=== PATIENT | female | born 1960 | race Caucasian/White ===

== ENCOUNTER → 2022-12-07 11:21 | Outpatient (CLI) | payer OTHER, SELFPAY ==
[2022-12-07 12:00] LABS: Add Manual Diff / Slide Review NO; Basophils Absolute Auto 0 /uL (0-100); Basophils Percent Auto 0.5 % (0-2); Eosinophils Absolute Auto 100 /uL (0-450); Eosinophils Percent Auto 2.3 % (2-4); Hematocrit 41.6 % (36-46); Lymphocytes Absolute Auto 2800 /uL (1100-4500); Lymphocytes Percent Auto 48.2 % (25-40); Mean Corpuscular HGB Conc 33.7 % (30-36); Mean Corpuscular Hemoglobin 28.1 PG (26-34); Mean Corpuscular Volume 83.5 fL (80-100); Monocytes Absolute Auto 400 /uL (0-900); Monocytes Percent Auto 6.6 % (3-14); Neutrophils Absolute Auto 2500 /uL (1500-7000); Neutrophils Percent Auto 42.4 % (50-75); Platelet Count 296 X10^3/uL (150-400); Red Blood Cell Count 4.98 X10^6/uL (4.0-5.2); Red Cell Distribution Width 13.3 % (11.6-14.8); White Blood Cell Count 5.9 X10^3/uL (4.5-11.0)
[2022-12-07 12:30] LABS: Alanine Aminotransferase 28 IU/L (<35); Albumin 4.5 g/dL (3.5-5.0); Albumin Globulin Ratio 1.7 (1.0-2.8); Alkaline Phosphatase 107 U/L (38-126); Aspartate Aminotransferase 24 IU/L (14-36); BUN Creatinine Ratio 18.1 (6-22); Bilirubin Total 0.8 mg/dL (0.2-1.3); Blood Urea Nitrogen 13 mg/dL (7-17); Calcium 9.2 mg/dL (8.4-10.2); Carbon Dioxide 25 mmol/L (22-32); Chloride 105 mmol/L (98-107); Cholesterol 225 mg/dL (140-199); Estimated Glomerular Filt Rate > 60 mL/min (>60); Globulin 2.7 g/dL (1.7-4.1); Glucose 93 mg/dL (80-110); HDL Cholesterol 54 mg/dL (40-60); HEMOLYSIS < 15 (0-50); LDL Cholesterol Calculated 131 mg/dL (<100); Potassium 4.3 mmol/L (3.4-5.1); Sodium 138 mmol/L (137-145); Total Protein 7.2 g/dL (6.3-8.2); Triglycerides 198 mg/dL (35-150)
[2022-12-07 13:01] LABS: Free T3, Triiodothyronine Free 3.87 pg/mL (2.77-5.27); Free T4, Direct Thyroxine 1.05 ng/dL (0.78-2.19)
[2022-12-07 13:19] LABS: Hep C Virus Ab w/Reflex Quant NEGATIVE s/c (NEGATIVE)
[2022-12-07 13:54] LABS: Thyroid Stimulating Hormone 1.55 uIU/mL (0.47-4.68)
[2022-12-10 10:17] LABS: Fecal Immunochemical Test Negative (Negative)
== END ==
PROVIDERS: PCP Nurse Practitioner; Referring Provider Nurse Practitioner; Visit Provider Nurse Practitioner
DX: Z00.00 Encounter for general adult medical examination without abnormal findings (principal); Z11.59 Encounter for screening for other viral diseases; Z12.11 Encounter for screening for malignant neoplasm of colon
CPT/HCPCS: 36415; 80053; 80061; 82274; 84439; 84443; 84481; 85025; 86803

== ENCOUNTER → 2023-02-01 08:48 | Outpatient (CLI) | payer OTHER, SELFPAY ==
--- NOTE | 2023-02-01 08:49 | DI.MG.S_ITS ---
BILATERAL DIGITAL DIAGNOSTIC MAMMOGRAM 3D/2D: 02/01/2023 CLINICAL: Palpable right breast lump/indention. Comparison is made to exams dated: 12/02/2019 mammogram, 10/09/2017 mammogram, and 05/10/2015 mammogram - Outside facility. Both breasts are heterogeneously dense, which may obscure small masses (category c / 51-75% glandular tissue). There is a 1.5 cm mass with a spiculated margin in the right breast at 6 o'clock posterior depth. This correlates as palpated. No other significant masses, calcifications, or other findings are seen in either breast. IMPRESSION: INCOMPLETE: NEEDS ADDITIONAL IMAGING EVALUATION The 1.5 cm mass in the right breast is indeterminate. An ultrasound is recommended. Based on the Tyrer Cuzick model (a risk assessment model) the patient's lifetime risk is 11.5% and her 10 year risk is 5.0%. According to the ACR, ACS, and NCCN guidelines, an annual breast MRI exam along with mammogram is recommended if the patient's lifetime risk is 20% or greater. This exam was interpreted at Station ID: [id number]. NOTE: For mammograms, a report in lay terms will be sent to the patient. Approximately 15% of breast malignancies will not be visualized mammographically. In the management of a palpable breast mass, a negative mammogram must not discourage biopsy of a clinically suspicious lesion. Electronically Signed By: Ander Dasilva M.D. lc/:02/01/2023 11:57:02 ACR BI-RADS Category 0: Incomplete 3340F
--- NOTE | 2023-02-01 08:49 | DI.US.S_ITS ---
LIMITED ULTRASOUND OF RIGHT BREAST AND AXILLA: 02/01/2023 CLINICAL: Palpable right breast lump/indention. Comparison is made to exams dated: 02/01/2023 mammogram - [facility], 12/02/2019 mammogram, 10/09/2017 mammogram, and 05/10/2015 mammogram - Outside facility. Color flow and real-time ultrasound of the right breast axilla were performed. Li scale images of the real-time examination were reviewed. There is a 1.5 cm x 1.3 cm x 1.1 cm mass with a spiculated margin in the right breast at 6 o'clock posterior depth 6 cm from the nipple. This correlates as palpated and with mammography findings. No significant abnormalities were seen sonographically in the right axilla. IMPRESSION: HIGHLY SUGGESTIVE OF MALIGNANCY The 1.5 cm x 1.3 cm x 1.1 cm mass in the right breast is highly suggestive of malignancy. US biopsy recommended. No significant abnormalities were seen sonographically in the right axilla. This exam was interpreted at Station ID: [id number]. Electronically Signed By: Ander Dasilva M.D. /:02/01/2023 11:58:37 letter sent: Biopsy Required Ultrasound BI-RADS: 5 Highly suggestive of malignancy
== END ==
PROVIDERS: PCP Nurse Practitioner; Referring Provider Nurse Practitioner Family; Visit Provider Nurse Practitioner Family
DX: N63.15 Unspecified lump in the right breast, overlapping quadrants (principal); R92.8 Other abnormal and inconclusive findings on diagnostic imaging of breast
CPT/HCPCS: 76642; 77066; G0279

== ENCOUNTER 2023-03-11 12:43 | Day surgery (SDC) | payer OTHER, SELFPAY ==
[2023-03-06 08:16] VITALS: BMI 26.4
[2023-03-11] VITALS (7 sets, daily range): BP systolic 100–134; BP diastolic 62–80; PULSE 71–98; RESP 13–22; TEMP 36.4–36.5; O2SAT 95–97; BMI 26.4
[2023-03-11] MEDS: LACTATED RINGERS 1,000 ML 84 ML IV (13:31)
--- NOTE | 2023-03-11 14:09 | P.HP_ITS ---
History of Present Illness History of Present Illness Date Patient Seen: 03/11/23 Time Patient Seen: 14:09 Chief complaint: SDC Narrative: Moira is a 62-year-old woman with a recent diagnosis of right breast triple negative breast cancer. She will be seeing Dr. Pacheco of Oncology tomorrow. See prior office notes for more details. [facility] Medical History (Updated 03/07/23 @ 12:51 by Charmaine Dempsey, RN) Acne (~1972) Aseptic necrosis of bone Breast mass, right Elevated cholesterol Headache Heart murmur Restless leg syndrome (~1999) Skin cancer (~2015) Surgical History (Updated 03/07/23 @ 12:53 by Charmaine Dempsey RN) Anesthesia H/O right wrist surgery (~2010) History of hip surgery (~2003) History of knee surgery (~2008) Family History Father Cancer History of heart disease Hypertension Mother Fall Grandmother Diabetes mellitus Social History Smoking Status: Never smoker alcohol intake: current Meds Home Medications and Allergies Home Medications Medication Instructions Recorded Confirmed Type baclofen 5 mg tablet 5 mg PO BID PRN Muscle Spasm 10/02/22 03/11/23 History diazepam 5 mg tablet 10 mg PO BID-TID PRN RLS #60 tabs 02/05/23 03/11/23 Rx Allergies Allergy/AdvReac Type Severity Reaction Status Date / Time Sulfa (Sulfonamide Allergy Intermediate Verified 03/11/23 13:02 Antibiotics) citric acid AdvReac Severe rash and Verified 03/11/23 13:02 canker sores Exam Vital Signs (past 8 hours): - 03/11/23 13:05 Temperature 97.7 F Pulse Rate 84 Respiratory Rate 16 Blood Pressure 134/80 Pulse Oximetry 97 Oxygen Delivery Method Room Air Oxygen Delivery Method Room Air Const General: healthy appearing Assessment & Plan Assessment and plan (1) Breast cancer, right: Qualifiers: Breast location: lower inner quadrant of breast Estrogen receptor status: unspecified Patient sex: female Qualified Code(s): C50.311 - Malignant neoplasm of lower-inner quadrant of right female breast Status: Acute Plan We reviewed the risks and benefits of Port-A-Cath placement and she would like to proceed with surgery.
[2023-03-11] MEDS: CEFAZOLIN 2 GM/100 ML PREMIX 100 ML IV (14:42)
--- NOTE | 2023-03-11 15:01 | SUR.OPER ---
Supine on padded OR bed, head on pillow, arms padded and tucked at sides, legs uncrossed, safety belt at thigh, tape over blanket over lower legs .
[2023-03-11] MEDS: LIDOCAINE 1% 20 ML, EPINEPHrine 0.2 MG INJ (15:07)
--- NOTE | 2023-03-11 15:18 | DI.RAD.S_ITS ---
PROCEDURE: XR CHEST 1V INDICATIONS: INNER OP IMAGE TECHNIQUE: One view of the chest was acquired. COMPARISON: None. FINDINGS: Surgical changes and devices: A catheter projects over the right chest, tip of which projects over the mid SVC. Lungs and pleura: Lungs are clear. No pleural effusions or pneumothorax. Mediastinum: Mediastinal contours appear normal. Heart size is normal. Bones and chest wall: No suspicious bony lesions. Overlying soft tissues appear unremarkable. IMPRESSION: Tip of catheter projects over the mid SVC. Dictated by: Margarita Valero M.D. on 03/11/2023 at 16:20 Approved by: Margarita Valero M.D. on 03/11/2023 at 16:21
--- NOTE | 2023-03-11 15:24 | P.OP_ITS ---
Operative Date/Time/Diagnoses Date of procedure: 03/11/23 Time of procedure: 15:25 Pre-op diagnosis: Right breast cancer Post-op diagnosis: same Procedure & Clinicians Procedure: Port-A-Cath Same procedure as scheduled: Yes Surgeon: Jasvir Tang Anesthesia Type: General Operative Notes Procedure in detail: The patient was brought to the operating room, placed on the table in the supine position with the arms tucked. Ancef was administered. Anesthesia was induced via LMA. A time-out was performed. The right chest and neck were prepped and draped in the usual fashion. An ultrasound was used to identify the right internal jugular vein. The vein was noted to be patent. An image was saved and printed and placed in the chart. The right internal jugular vein was accessed via the Seldinger technique under ultrasound guidance. The guidewire was inserted into the superior vena cava. C-arm was used to confirm proper position of the guidewire in the superior vena cava and no ectopy was noted. The needle was removed and the wire was clamped to the drape. Next, a port pocket was created just inferior to the medial clavicle using a 15 blade scalpel. Dissection was carried down to the pectoral fascia. A subcutaneous pocket was created using a combination of cautery and blunt dissection. Next, the port which was primed with injectable saline, was secured to the fascia with 3-0 PDS sutures left untied and clamped. The neck incision was extended with an 11 blade scalpel to approximately 5 mm. The dilator and peel-away sheath were inserted over the wire without resistance. The catheter was passed from the neck incision to the chest incision in the subcutaneous tissue using the tunnelling device. The wire and dilator were then removed and the catheter inserted through the peel-away sheath to deliver it into the superior vena cava. The depth of the device was checked using the C-arm and the tip of the device was noted to be in the distal superior vena cava. The exterior portion of the catheter was then trimmed and attached to the port using the strain relief collar. A final image showed good position of the catheter with no kinks. The port was then tucked into the subcutaneous pocket and the sutures were tied to secure the device. The port was then accessed using the Valadez needle and it was noted that the device sharif and flushed easily without resistance. Approximately 4 mL of heparinized saline were injected into the dev ice. The skin incisions were closed with 3-0 Vicryl and 4-0 Monocryl. Steri- Strips were applied patient was awakened and brought to recovery room EBL: 5 mL Ultrasound: The right internal jugular vein was patent. The right carotid artery was visualized adjacent to the vein. Venipuncture was visualized in real-time using the ultrasound. Fluoroscopy: The device was positioned appropriately with the distal end of the catheter near the atriocaval junction. There were no kinks in the catheter. Post-operative Condition: stable Disposition: PACU
--- NOTE | 2023-03-11 15:35 | DI.RAD.S_ITS ---
PROCEDURE: XR CHEST 1V INDICATIONS: POST OP PORTACATH TECHNIQUE: One view of the chest was acquired. COMPARISON: [facility], CR, XR CHEST 1V, 03/11/2023, 15:01. FINDINGS: Surgical changes and devices: Right-sided port with the catheter tip at the cavoatrial junction. Lungs and pleura: Lungs are clear. No pleural effusions or pneumothorax. Mediastinum: Mediastinal contours appear normal. Heart size is normal. Bones and chest wall: No suspicious bony lesions. Overlying soft tissues appear unremarkable. IMPRESSION: Right-sided port with the tip at the cavoatrial junction. No pneumothorax. Dictated by: Justin Lees M.D. on 03/11/2023 at 16:45 Approved by: Justin Lees M.D. on 03/11/2023 at 16:46
[2023-03-11] MEDS: OXYCODONE/ACETAMINOPHEN 5/325 TABLET 1 TAB PO (16:27)
== END 2023-03-11 16:54 | disposition home or self-care (01) ==
PROVIDERS: PCP Nurse Practitioner; Referring Provider Surgery; Visit Provider Surgery
PROC: (CPT 36561; principal; 2023-03-11 14:30)
DX: C50.311 Malignant neoplasm of lower-inner quadrant of right female breast (principal)
CPT/HCPCS: 36561; 71045; 76000; C1788; J0171; J0690; J1100; J1644; J2250; J2405; J2704; J3010

== ENCOUNTER → 2023-03-14 09:42 | Outpatient (CLI) | payer OTHER, SELFPAY ==
--- NOTE | 2023-03-14 09:44 | DI.US.S_ITS ---
LIMITED ULTRASOUND OF LEFT BREAST AND AXILLA: 03/14/2023 CLINICAL: Palpable left breast lump. Comparison is made to exams dated: 03/14/2023 mammogram, 02/01/2023 mammogram - [facility], and 12/02/2019 mammogram - Outside facility. Color flow and real-time ultrasound of the left breast axilla were performed. Li scale images of the real-time examination were reviewed. There is a 0.5 cm x 0.4 cm x 0.4 cm oval cyst in the left breast at 7 o'clock anterior depth 4 cm from the nipple. This oval cyst is hypoechoic. This correlates with mammography findings. Color flow imaging demonstrates that there is no vascularity present. No mass is seen at the palpable sticker. No significant abnormalities were seen sonographically in the left axilla. IMPRESSION: PROBABLY BENIGN The 0.5 cm cyst in the left breast 7:00 is consistent with a complicated cyst and is probably benign. A follow-up mammogram and an ultrasound in 6 months is recommended to demonstrate stability. Patient has a pending breast MRI for known cancer in the contralateral right breast. Recommend attention on breast MRI. No mass is seen at the palpable sticker. No enlarged left axillary lymph nodes. Exam findings were discussed with the patient. Patient is advised to monitor for significant change. Clinical follow-up as needed. This exam was interpreted at Station ID: [id number]. Electronically Signed By: Justin Lees M.D. slc/:03/14/2023 11:23:14 letter sent: Followup Recommended Ultrasound BI-RADS: 3 Probably benign
--- NOTE | 2023-03-14 09:44 | DI.MG.S_ITS ---
UNILATERAL LEFT DIGITAL DIAGNOSTIC MAMMOGRAM 3D/2D: 03/14/2023 CLINICAL: Left breast mass. Comparison is made to exams dated: 02/01/2023 mammogram - [facility], 12/02/2019 mammogram, and 10/09/2017 mammogram - Outside facility. The left breast is heterogeneously dense, which may obscure small masses (category c / 51-75% glandular tissue). There is a 0.5 cm oval mass in the left breast at 7 o'clock anterior depth. This is more prominent and correlates as palpated. No other significant masses or calcifications are seen in the breast. IMPRESSION: INCOMPLETE: NEEDS ADDITIONAL IMAGING EVALUATION The 0.5 cm palpated mass in the left breast is indeterminate. A targeted ultrasound is recommended and will immediately follow. This exam was interpreted at Station ID: [id number]. NOTE: For mammograms, a report in lay terms will be sent to the patient. Approximately 15% of breast malignancies will not be visualized mammographically. In the management of a palpable breast mass, a negative mammogram must not discourage biopsy of a clinically suspicious lesion. Electronically Signed By: Justin Lees M.D. [facility] [place]:03/14/2023 10:13:19 ACR BI-RADS Category 0: Incomplete 3340F
== END ==
PROVIDERS: PCP Nurse Practitioner; Referring Provider Surgery; Visit Provider Surgery
DX: R92.8 Other abnormal and inconclusive findings on diagnostic imaging of breast (principal); N60.02 Solitary cyst of left breast; C50.911 Malignant neoplasm of unspecified site of right female breast
CPT/HCPCS: 76642; 77065; G0279

== ENCOUNTER → 2023-03-19 08:32 | Outpatient (CLI) | payer OTHER, SELFPAY ==
--- NOTE | 2023-03-19 08:34 | DI.MRI.S_ITS ---
BREAST MRI OF BOTH BREASTS: 03/19/2023 CLINICAL: Triple negative breast cancer; Dense breast. PROCEDURE: MR BREAST BI WO/W CON INDICATIONS: Triple negative breast cancer, dense breast TECHNIQUE: The patient was placed prone in a dedicated breast imaging coil. Precontrast axial STIR and 3D FLASH without fat saturation sequences were obtained. Both before and after bolus injection of contrast, sequential 1-minute axial 3D FLASH with fat saturation sequences for 3 time points, with subtraction images and maximum intensity projections (MIP's) generated. Delayed sagittal FLASH images with fat saturation were also obtained. CONTRAST: 20 cc ProHance IV contrast. Computer-aided detection, including computer algorithm analysis of MRI image data for lesion detection and characterization, pharmacokinetic analysis, with further physician review for interpretation, was performed. COMPARISON: [facility], , US BREAST LT LIMITED, 03/14/2023, 10:43. [facility], , MM DIAGNOSTIC MAMMO UNILAT LT, 03/14/2023, 9:58. [facility], , US BREAST RT LIMITED, 02/01/2023, 9:29. [facility], , MM DIAGNOSTIC MAMMO BI, 02/01/2023, 9:04. Outside Facility, [facility], MM SCREENING MAMMO BI, 12/02/2019, 14:56. Outside Facility, [facility], MM SCREENING MAMMO BI, 10/09/2017, 12:11. FINDINGS: Image quality: Excellent. There is mild background parenchymal enhancement. Right breast: 5:30 o'clock posterior depth irregular enhancing mass measuring 1.7 x 1.5 x 1.4 cm, (30 and ). Susceptibility artifact from biopsy clip centered in the lesion. Kinetic analysis demonstrates rapid initial phase and washout delayed phase. 3 o'clock middle depth enhancing irregular focus measuring 0.5 cm, (/ and 1460). Kinetic analysis demonstrates slow initial phase and persistent delayed phase. This focus is a more conspicuous compared to the other foci scattered throughout the breast. Left breast: 9 o'clock middle depth oval enhancing mass measuring 0.7 x 0.5 x 0.4 cm, (1353 and 15/). Kinetic analysis demonstrates slow initial phase and persistent delayed phase. This likely corresponds to the palpable abnormality and complicated cyst seen on ultrasound labeled at the 7 o'clock 4 cm from the nipple. A few additional scattered enhancing foci. Miscellaneous: No enlarged lymph nodes. IMPRESSION: INCOMPLETE: NEEDS ADDITIONAL IMAGING EVALUATION 1. Right breast: 5:30 o'clock posterior depth irregular enhancing mass measuring 1.7 cm. This corresponds to the biopsy-proven malignancy. 2. Right breast: 3 o'clock middle depth irregular enhancing focus measuring 0.5 cm. Indeterminate. This could represent multicentric disease. BR 4B -Recommend second-look right breast ultrasound. 3. Left breast: 9 o'clock middle depth oval enhancing mass measuring 0.7 cm. This may correspond to the ultrasound finding at 7 o'clock 4 cm in the nipple. Indeterminate. BR 4A. -Recommend second-look left breast ultrasound 9:00 region. -Assuming the MRI finding and US finding are concordant, recommend ultrasound guided biopsy of the previously seen ultrasound finding, left breast 7 o'clock 4 cm from nipple given that the finding was palpable and the MRI finding is mildly enhancing. 4. Lymph nodes: No enlarged lymph nodes. BIRADS 0. Recommend second-look ultrasounds and left breast ultrasound guided biopsy. COMMENT: The imaging literature indicates that a negative contrast breast MRI examination has a high sensitivity and a moderate specificity for detecting and excluding invasive carcinomas to a detection threshold of 3-5 mm; nonetheless, appropriate clinical and mammographic follow-up are recommended. MRI is not sensitive for detecting DCIS (ductal carcinoma in situ) and may not detect large invasive neoplasms that show only minimal enhancement such as mucinous carcinoma. If there are suspicious calcifications or clinically worrisome palpable masses, then biopsy should still be considered. Invasive neoplasms can be hidden by co-existent and benign enhancement caused by mastitis, hormone therapy effects, radiation therapy, , and recent biopsy or surgery. False positive examinations can occur in a number of circumstances, including breasts that have recently been subject to invasive procedures and those that contain atypical ductal hyperplasia, hormonally stimulated glandular tissue, fat necrosis, or radial scars. Dictated by: Justin Lees M.D. on 03/19/2023 at 15:59 This exam was interpreted at Station ID: [id number]. Electronically Signed By: Justin Lees M.D. slc/:03/20/2023 12:17:11 ACR BI-RADS Category 0: Incomplete 3340F
== END ==
PROVIDERS: PCP Nurse Practitioner; Referring Provider Internal Medicine Hematology & Oncology; Visit Provider Internal Medicine Hematology & Oncology
DX: C50.311 Malignant neoplasm of lower-inner quadrant of right female breast (principal); R92.2 Inconclusive mammogram; N63.15 Unspecified lump in the right breast, overlapping quadrants; N63.25 Unspecified lump in the left breast, overlapping quadrants
CPT/HCPCS: 77049; A9579

== ENCOUNTER → 2023-03-29 09:25 | Outpatient (CLI) | payer OTHER, SELFPAY ==
--- NOTE | 2023-03-29 09:26 | DI.US.S_ITS ---
ULTRASOUND OF LEFT BREAST AND AXILLA: 03/29/2023 CLINICAL: Recommended 2nd breast ultrasound after MRI. Comparison is made to exams dated: 03/19/2023 breast MRI, 03/14/2023 ultrasound, 03/14/2023 mammogram, 02/01/2023 ultrasound, 02/01/2023 mammogram - [facility], and 12/02/2019 mammogram - Outside facility. Color flow and real-time ultrasound of the left breast axilla were performed. Li scale images of the real-time examination were reviewed. There is a 0.4 cm x 0.3 cm x 0.4 cm oval mass with an indistinct margins in the left breast at 9 o'clock middle depth 3 cm from the nipple. This oval mass is hypoechoic with no posterior acoustic shadowing or enhancement. This might correlate with breast MRI findings. Color flow imaging demonstrates that there is no vascularity present. There also is a 0.6 cm x 0.5 cm x 0.5 cm oval mass in the left breast at 7 o'clock middle depth 4 cm from the nipple. This oval mass is hypoechoic. This likely correlates as palpated area of concern on previous imaging and asymmetry seen on mammography. Given it's proximity to the 9 o'clock mass, this might correlate breast MRI finding described since there was only one suspicious finding seen on MRI. Color flow imaging demonstrates that there is no vascularity present. No significant abnormalities were seen sonographically in the left axilla. IMPRESSION: SUSPICIOUS OF MALIGNANCY The 0.4 cm x 0.3 cm x 0.4 cm oval mass in the left breast at 9 o'clock middle depth is suspicious of malignancy. The 0.6 cm x 0.5 cm x 0.5 cm oval mass in the left breast at 7 o'clock middle depth is suspicious of malignancy. No sonographic abnormalities identified in the axilla. No axillary adenopathy. An ultrasound guided biopsy is recommended for both of these masses in this patient with biopsy proven contralateral malignancy. Findings and recommendations were discussed with the patient by Dr. Harden during today's examination. This exam was interpreted at Station ID: [id number]. Electronically Signed By: Esau Lopez M.D. aty/:04/01/2023 14:37:05 letter sent: Biopsy Required Ultrasound BI-RADS: 4 Suspicious for malignancy
--- NOTE | 2023-03-29 09:26 | DI.US.S_ITS ---
ULTRASOUND OF RIGHT BREAST AND AXILLA: 03/29/2023 CLINICAL: Recommended 2nd breast ultrasound after mri. Comparison is made to exams dated: 03/29/2023 ultrasound, 03/19/2023 breast MRI, 03/14/2023 ultrasound, 03/14/2023 mammogram, 02/01/2023 ultrasound, and 02/01/2023 mammogram - [facility]. Color flow and real-time ultrasound of the right breast axilla were performed. Li scale images of the real-time examination were reviewed. There is a 0.4 cm x 0.2 cm x 0.3 cm oval mass in the right breast at 3 o'clock anterior depth 1 cm from the nipple. This oval mass is hypoechoic with no posterior acoustic shadowing or enhancement. This abnormality is not significantly changed and correlates with breast MRI findings. Color flow imaging demonstrates that there is no vascularity present. There also is a stable irregular mass in the right breast at 5 o'clock middle depth. There is an associated biopsy clip. This is consistent with biopsy proven malignancy. No sonographic abnormalities seen in the right breast at the 9 o'clock axis to correlate with suspicious MRI findings described in separate report. No significant abnormalities were seen sonographically in the right axilla. IMPRESSION: SUSPICIOUS OF MALIGNANCY The 0.4 cm x 0.2 cm x 0.3 cm oval mass in the right breast at 3 o'clock anterior depth resembles a lymph node or a fibroadenoma and is probably benign. This correlates with MRI finding in the medial anterior right breast. A follow up mammogram and ultrasound is recommended in 6 months to document stability. The irregular mass in the right breast at 5 o'clock middle depth is a known biopsy positive for malignancy. Continue with surgical/oncologic consultation and evaluation. There is no abnormality seen in the right breast to correspond with the area of suspicious breast MRI finding at 9 o'clock in the anterior depth, however, MRI guided biopsy is recommended. No sonographic abnormalities identified in the axilla. No axillary adenopathy. Findings and recommendations were discussed by Dr. Harden with the patient during today's examination. This exam was interpreted at Station ID: [id number]. Electronically Signed By: Esau Lopez M.D. aty/:04/01/2023 14:32:35 letter sent: Biopsy Required Ultrasound BI-RADS: 4 Suspicious for malignancy
== END ==
PROVIDERS: PCP Nurse Practitioner; Referring Provider Internal Medicine Hematology & Oncology; Visit Provider Internal Medicine Hematology & Oncology
DX: C50.311 Malignant neoplasm of lower-inner quadrant of right female breast; N63.25 Unspecified lump in the left breast, overlapping quadrants; N63.24 Unspecified lump in the left breast, lower inner quadrant; Z17.0 Estrogen receptor positive status [ER+]
CPT/HCPCS: 76642

== ENCOUNTER → 2023-10-15 12:37 | Outpatient (CLI) | payer OTHER, SELFPAY ==
--- NOTE | 2023-10-15 | DI.MRI.S_ITS ---
BREAST MRI OF BOTH BREASTS: 10/15/2023 CLINICAL: Breast Cancer. TECHNIQUE: The patient was placed prone in a dedicated breast imaging coil. Precontrast axial STIR and 3D FLASH without fat saturation sequences were obtained. Both before and after bolus injection of contrast, sequential 1-minute axial 3D FLASH with fat saturation sequences for 3 time points, with subtraction images and maximum intensity projections (MIP's) generated. Delayed sagittal FLASH images with fat saturation were also obtained. Computer-aided detection, including computer algorithm analysis of MRI image data for lesion detection and characterization, pharmacokinetic analysis, with further physician review for interpretation, was performed. COMPARISON: [facility], MG, MM DIAGNOSTIC MAMMO BI, 02/01/2023, 9:04. [facility], MG, MM DIAGNOSTIC MAMMO UNILAT LT, 03/14/2023, 9:58. [facility], US, US BREAST RT LIMITED, 02/01/2023, 9:29. [facility], US, US BREAST LT LIMITED, 03/14/2023, 10:43. [facility], US, US BREAST LT LIMITED, 03/29/2023, 9:50. [facility], MR, MR BREAST BI WO/W CON, 03/19/2023, 9:35. Image quality: Diagnostic. There is mild background parenchymal enhancement. There is heterogeneously dense fibroglandular tissue in the bilateral breast. Right breast: There is a biopsy marker noted in the posterior depth of the inferior right breast at approximately the 5:30 -6 o'clock position correlating with previously biopsy proven malignancy. There is minimal surrounding enhancement. No focal, measurable mass lesion seen on today's exam. Additionally, previously biopsied anterior right breast enhancing mass at the 9 o'clock axis is again noted and contains a biopsy marker. This does not appear significantly changed in size or appearance measuring approximately 0.6 cm in size (69/series 17). Otherwise, no new right breast mass identified. No areas of abnormal enhancement or non-mass enhancement. No skin or nipple abnormalities identified. No axillary or internal mammary chain adenopathy. Left breast: Left breast demonstrates expected postsurgical changes from previous ultrasound guided biopsy of 9 o'clock middle depth mass. There is a biopsy marker noted within this mass. This mass appears visibly similar in size and shape but is difficult to measure given presence of biopsy marker and susceptibility artifact. Otherwise, no new mass, non-mass enhancement, or architectural distortion identified in the left breast. No axillary or internal mammary chain adenopathy. No skin or nipple abnormality seen. Miscellaneous: Visualized portions of the upper abdominal and chest appear unremarkable. IMPRESSION: KNOWN BIOPSY PROVEN MALIGNANCY 1. Significant interval decrease in size and conspicuity of biopsy-proven malignancy in the right breast at the 5:30 -6 o'clock position, posterior depth compatible with positive response to treatment. No new suspicious abnormalities identified in the right breast. 2. Stable appearance of anterior right breast 9 o'clock sub cm mass with biopsy-proven benign pathology. 3. Stable appearance of left breast 9 o'clock middle depth mass with biopsy proven benign pathology. COMMENT: The imaging literature indicates that a negative contrast breast MRI examination has a high sensitivity and a moderate specificity for detecting and excluding invasive carcinomas to a detection threshold of 3-5 mm; nonetheless, appropriate clinical and mammographic follow-up are recommended. MRI is not sensitive for detecting DCIS (ductal carcinoma in situ) and may not detect large invasive neoplasms that show only minimal enhancement such as mucinous carcinoma. If there are suspicious calcifications or clinically worrisome palpable masses, then biopsy should still be considered. Invasive neoplasms can be hidden by co-existent and benign enhancement caused by mastitis, hormone therapy effects, radiation therapy, , and recent biopsy or surgery. False positive examinations can occur in a number of circumstances, including breasts that have recently been subject to invasive procedures and those that contain atypical ductal hyperplasia, hormonally stimulated glandular tissue, fat necrosis, or radial scars. This exam was interpreted at Station ID: [id number]. Electronically Signed By: Esau Lopez M.D. aty/:10/15/2023 18:21:44 ACR BI-RADS Category 6: Known biopsy proven malignancy 3346F
== END ==
LOC: MRI 12:38
PROVIDERS: PCP Nurse Practitioner; Referring Provider Internal Medicine Hematology & Oncology; Visit Provider Internal Medicine Hematology & Oncology
DX: C50.311 Malignant neoplasm of lower-inner quadrant of right female breast (principal); D24.2 Benign neoplasm of left breast; D24.1 Benign neoplasm of right breast; Z17.1 Estrogen receptor negative status [ER-]
CPT/HCPCS: 77049; A9579

== ENCOUNTER → 2023-10-29 08:02 | Outpatient (CLI) | payer OTHER, SELFPAY ==
--- NOTE | 2023-10-29 08:04 | DI.NM.S_ITS ---
PROCEDURE: NM SENTINEL NODE INJECT ONLY RADIOPHARMACEUTICAL: 0.5-1.0 mCi Millipore filtered Tc-99m sulfur colloid. INDICATIONS: right breast cancer COMPARISON: None. PROCEDURE: The area around the nipple was prepped and draped in a sterile fashion. Tc-99m sulfur colloid was injected intra-dermally around the outer edge of the areola in the right breast. No image was obtained. IMPRESSION: Administration of radiotracer into the right breast periareolar region for intra-operative sentinel lymph node localization. Dictated by: Flako Peña M.D. on 10/29/2023 at 11:19 Approved by: Flako Peña M.D. on 10/29/2023 at 11:21
== END ==
LOC: NUCM 08:03
PROVIDERS: PCP Nurse Practitioner; Referring Provider Surgery; Visit Provider Surgery
DX: C50.311 Malignant neoplasm of lower-inner quadrant of right female breast; Z17.1 Estrogen receptor negative status [ER-]
CPT/HCPCS: 38792; A9541

== ENCOUNTER 2023-10-29 08:04 | Day surgery (SDC) | payer OTHER, SELFPAY ==
[2023-10-25 09:01] VITALS: BMI 27.4
[2023-10-29] VITALS (8 sets, daily range): BP systolic 107–126; BP diastolic 61–82; PULSE 70–91; RESP 9–16; TEMP 36.2–36.7; O2SAT 81–99; BMI 27.4
--- NOTE | 2023-10-29 | DI.MG.S_ITS ---
SPECIMEN: 10/29/2023 CLINICAL: Right breast specimen. Correlation is made to exams dated: 10/29/2023 localization and 10/15/2023 breast MRI - [facility]. Specimen radiograph contains the wire tip and biopsy clip. IMPRESSION: SPECIMEN Specimen radiograph contains the wire tip and biopsy clip. This exam was interpreted at Station ID: [id number]. Ander Dasilva M.D. lc/:10/31/2023 07:27:08
--- NOTE | 2023-10-29 | DI.MG.S_ITS ---
MAMMOGRAPHY GUIDED WIRE LOCALIZATION RIGHT BREAST: 10/29/2023 CLINICAL: Malignant neoplasm of the Right breast. Correlation is made to exams dated: 10/15/2023 breast MRI - [facility], 04/10/2023 ultrasound biopsy, 04/10/2023 mammogram, 04/10/2023 mammogram, and 04/10/2023 MRI biopsy - [facility]. A wire localization using mammography guidance was performed for the mass located in the right breast at 6 o'clock posterior depth. The skin was prepped in the usual manner. A wire was inserted into the targeted area under mammography guidance. IMPRESSION: WIRE LOCALIZATION Wire localization for the mass in the right breast at 6 o'clock posterior depth was successful. This exam was interpreted at Station ID: [id number]. Flako Peña M.D. crm/:11/01/2023 10:10:43
--- NOTE | 2023-10-29 | PATH_ITS ---
[facility] Accession Number: [id number] No. of containers..02 Tissue . 01 Material submitted: . PART A: breast - RIGHT BREAST PART B: lymph node - SENTINEL NODE . 01 Clinical history: . A: GREEN: ANTERIOR; BLUE: INDERIOR; ORANGE: LATERAL YELLOW: MEDIAL; BLACK: POSTERIOR; RED: SUPERIOR . 01 Diagnosis: A. Right Breast, Lumpectomy: A. Status post neoadjuvant therapy for invasive ductal carcinoma, grade 3 of 3 ([facility] case, needle core biopsy, case #: [id number], CD: 02/22/2023) B. Current specimen contains NO RESIDUAL invasive carcinoma. C. A tumor bed is present, measuring approximately 25x15 mm in maximum dimension with an associated coil biopsy clip and site changes. D. Ductal carcinoma in situ: Absent. E. Calcifications: Present in benign ducts. F. Lymphatic invasion: Absent. G. Marker studies (tested on above [facility] case #:[id number]), reported as follows: i. Estrogen receptor: Negative. ii. Progesterone receptor: Negative. iii. HER2: Negative for protein overexpression by IHC (1+) and amplification by FISH studies. H. Regional lymph node status: One sentinel lymph node negative for malignancy (0/1) (see part B below). I. Additional findings: i. Nipple: Not present. ii. Biopsy site and coil clip: present. iii. Portions of skin with focal mild acute inflammation. iv. Fibrocystic change including adenosis, microcysts, focal usual ductal hyperplasia, columnar cell change/columnar cell hyperplasia, and apocrine metaplasia. J. Preoperative therapy: Yes. K. Pathologic stage: ypT0 ypN0(sn). . B. Hope Lymph Node, Dissection: 1 lymph node, negative for malignancy (0/1). Treatment effect is not seen. MNT 11/11/2023 1632 Local . 01 Electronically signed: . Jocelyn Chamorro MD, Pathologist NPI- [id number] . 01 Gross description: . Part A Received: In formalin labeled with the patient's name, , and right breast. Specimen: A previously inked right lumpectomy. Weight: 50 grams. Measurement: 6.1 cm from superior to inferior, 6.7 cm from anterior to posterior, and 2.5 cm from medial to lateral. Skin ellipse: Present measuring 4.5 x 1.4 cm with inked, wrinkled skin with no lesions distinctly identified. Wire: Present penetrating at the anterior side and terminating at the presumed posterior side. Margins: Inked by the surgeon as follows: anterior green, inferior blue, lateral orange, medial yellow, posterior black, superior red. Inking reinforced at the bench. Sliced: From anterior to posterior into 14 slices. Lesion: One lesion is grossly identified. Description: A small, firm, ill-defined nodule. Size: 0.3 x 0.2 x 0.2 cm. Slices involved: Slice 7. Biopsy site: Present. A coil biopsy clip is identified within slice 3 with associated biopsy site changes of soft fibrous tissue and hemorrhage most prominently noted within slices 2-5. No firm lesions are palpated within the presumed biopsy site changes. Distance to margins: Lesion: 0.6 cm from the yellow margin and greater than 1.0 cm from all remaining margins. Biopsy site: The clip is located greater than 1.0 cm from all margins, however, the fibrous tissue associated with the biopsy site grossly approaches the orange margin, 0.3 cm from the yellow margin, and greater than 1.0 cm from all remaining margins. Other: The remaining cut surface are yellow to white fibroadipose tissue with additional fibrous tissue occupying less than 10% of the cut surface. Fixation: The specimen is removed on 10/29/2023, time not provided, cold ischemic time cannot be calculated, total fixation time is approximately 58 hours following additional fixation. . Abrasive Mixer sections are submitted as follows: A1-A2: Abrasive Mixer slice 1 perpendicular. A3: Abrasive Mixer slice 2. A4-A6: Composite slice 3 with biopsy site in A5. A7-A9: Entire composite slice 4. A10-A12: Entire composite slice 6. A13-A15: Entire composite slice 7 with nodule in A15. A6-A18: Entire composite slice 8. A19: Abrasive Mixer slice 9. A20: Abrasive Mixer slice 11. A21: Abrasive Mixer slice 13. A22-A23: Abrasive Mixer slice 14 perpendicular. Additional sections are submitted as follows, after review of the gross by Dr Chamorro: A24: Additional rep slice 2. A25-A27: Entire composite slice 5. ([id number]) . B. Received in formalin labeled with the patient's name, , and sentinel node, and consists of a single rodriguez lympho node candidate with attached fat measuring 1.6 x 0.7 x 0.5 cm. The specimen is bisected and submitted entirely in cassette B1. The specimen was removed on 10/29/2023, time not provided, cold ischemic time cannot be calculated, total fixation time is approximately 58 hours following additional fixation. ([id number]) /ARTHUR 11/11/2023 1138 Local . 01 Pathologist provided ICD-10: C50.911 . 01 CPT . 415046, 696153 Specimen Comment: A courtesy copy of this report has been sent to [phone] Performed at: 01 [facility] [address] [place] [address], [place], [place] [id number] MD Mendez Summers MD Phone: [phone]
[2023-10-29] MEDS: SCOPOLAMINE 1 PATCH TOP (10:47)
[2023-10-29] MEDS: ACETAMINOPHEN 325 MG TABLET 975 MG PO (10:47)
[2023-10-29] MEDS: LACTATED RINGERS 1,000 ML 42 ML IV (10:48)
--- NOTE | 2023-10-29 11:32 | PM.PREOP ---
Pre-operative Note COVID-19 COVID-19 status: Not tested Interval Note History & Physical reviewed/Exam performed by Physician: Yes Changes to H&P: No ASA Class (for procedural sedation): III
[2023-10-29] MEDS: CEFAZOLIN 2 GM/100 ML PREMIX 100 ML IV (11:43)
--- NOTE | 2023-10-29 11:58 | SUR.OPER ---
Supine on padded OR bed, head on pillow, arms secured on padded arm boards at <90 degrees abduction, legs uncrossed, safety belt at thigh, tape over blanket over lower legs.
[2023-10-29] MEDS: METHYLENE BLUE 50 MG/10 ML VIAL 25 MG INJ (12:07)
[2023-10-29] MEDS: BUPIVACAINE 0.5% (PF) 30 ML, EPINEPHrine 0.15 MG INJ (12:08)
[2023-10-29] MEDS: fentaNYL 100 MCG/2 ML INJ IV (14:02)
--- NOTE | 2023-10-29 14:11 | PM.OP.1 ---
Operative Date/Time/Diagnoses Date of procedure: 10/29/23 Time of procedure: 14:11 Pre-op diagnosis: Right breast cancer Post-op diagnosis: same Procedure & Clinicians Procedure: Right breast lumpectomy with oncoplastic reconstruction Right sentinel lymph node biopsy Same procedure as scheduled: Yes Surgeon: Jasvir Tang Anesthesia Type: General Operative Notes Procedure in detail: The patient is a 63-year-old woman who was diagnosed last year with triple negative right breast cancer. She completed neoadjuvant chemotherapy. On the day of surgery she had a wire localization device placed by Radiology as well as injection of Lymphoseek. The patient was given preoperative antibiotic. The patient was brought to the operating room, placed on the table in the supine position, general anesthesia was induced with LMA. Arms were abducted on arm boards. 5 mL of 50% methylene blue were injected near the left lateral areolar border. The right breast and axilla were prepped and draped in the usual fashion. A time-out was performed. Additional massage was performed to spread the methylene blue. The lymphoscintigraphy probe was used to identify a potential sentinel node in the right axilla. We injected local anesthetic into the skin and made a transverse right axillary incision of roughly 4 cm. We dissected down through the subcutaneous adipose tissue until we could more easily palpate the palpable node. Was sentinel node hot but with minimal blue discoloration. The node was dissected free measured ex vivo. The ex vivo count was 626 in the background count was 44 sentinel node. We then packed axilla with a lap pad. We then turned to the right breast. An oncoplastic resection was performed by creating a T-shaped incision from the inferior edge of the areolar border to inframammary including a triangle of skin which contained the wire. We created lateral and medial flaps and dissected down to the pectoral fascia keeping wire centered. The end of the wire was never seen. The specimen was then inked and sent for a specimen mammogram which demonstrated the tip of the wire and the clip. We then irrigated both wound cavities initially with sterile water. Local anesthetic was injected into the muscle layer of the lumpectomy site. A few bleeders were cauterized. One stitch was placed in the musculature of the serratus anterior to stop a small bleeder. Several mini clips were placed throughout the wound cavity. Once the wound cavities were hemostatic we injected some local anesthetic into the dermis and closed both incisions in layers using multiple interrupted 3-0 Vicryl dermal sutures followed by a running 4-0 Monocryl subcuticular closure. Steri-Strips were applied followed by dry gauze and a breast binder. EBL: 20 mL Post-operative Condition: stable Disposition: PACU
[2023-10-29] MEDS: OXYCODONE IR 5 MG TABLET PO ×2 (14:17→14:47)
== END 2023-10-29 14:49 | disposition home or self-care (01) ==
PROVIDERS: PCP Nurse Practitioner; Referring Provider Surgery; Visit Provider Surgery
PROC: (CPT 19301; principal; 2023-10-29 11:45)
DX: Z17.1 Estrogen receptor negative status [ER-]; C50.311 Malignant neoplasm of lower-inner quadrant of right female breast
CPT/HCPCS: 38500; 19125; 19281; 19301; 38792; 76098; A9541; C1819; J0171; J0690; J1885; J2250; J2405; J2704; J3010; Q9968

== ENCOUNTER → 2024-03-31 08:42 | Outpatient (CLI) | payer OTHER, SELFPAY ==
--- NOTE | 2024-03-31 08:44 | DI.MRI.S_ITS ---
PROCEDURE: MR HEAD/BRAIN WO/W CON INDICATIONS: 63-year-old female with short-term memory loss and history of breast cancer TECHNIQUE: Noncontrast axial T1 spin echo, axial T2 fast spin echo, sagittal and axial FLAIR, coronal T2 fast spin echo, axial gradient echo, axial diffusion and ADC through the brain. After the administration of contrast, axial and coronal and sagittal 3D VIBE or T1 spin echo with fat saturation through the brain. COMPARISON: None. FINDINGS: CSF Spaces: Basal cisterns are patent. No extra-axial fluid collections. Ventricles are normal in size and shape. Brain: No intracranial masses or hemorrhage. Li/white matter interface is normal. Brainstem appears normal. Diffusion-weighted sequence is unremarkable without evidence of acute infarct. Normal intravascular flow voids are present. Both hippocampal formations show appropriate volume, morphology and signal characteristics. Skull and face: Calvarial marrow is normal in signal. Orbits appear normal. Sinuses: Sinuses and mastoids appear clear. IMPRESSION: Normal MRI of the brain with contrast. No evidence metastatic disease Approved by: Fortino Kauffman M.D. on 03/31/2024 at 14:38
== END ==
PROVIDERS: PCP Nurse Practitioner; Referring Provider Nurse Practitioner; Visit Provider Nurse Practitioner
DX: C50.311 Malignant neoplasm of lower-inner quadrant of right female breast (principal); R41.3 Other amnesia; Z17.1 Estrogen receptor negative status [ER-]
CPT/HCPCS: 70553; A9579

== ENCOUNTER 2024-07-17 11:11 | Day surgery (SDC) | payer OTHER, SELFPAY ==
[2024-07-17 11:29] VITALS: BP 137/82; PULSE 99; RESP 16; TEMP 36.1; O2SAT 98
--- NOTE | 2024-07-17 12:31 | P.HP_ITS ---
History of Present Illness History of Present Illness Date Patient Seen: 07/17/24 Time Patient Seen: 12:31 Chief complaint: [facility] Narrative: Moira is a 63-year-old woman who is here for her first screening colonoscopy. She recently completed treatment for breast cancer. [facility] Medical History (Updated 07/17/24 @ 12:32 by Jasvir Tang MD) Port-A-Cath in place (03/11/23) Headache Heart murmur Elevated cholesterol Acne (~1972) Skin cancer (~2015) Aseptic necrosis of bone Restless leg syndrome (~1999) Surgical History History of surgery (03/11/23) Anesthesia H/O right wrist surgery (~2010) History of knee surgery (~2008) History of hip surgery (~2003) Family History Father Cancer History of heart disease Hypertension Mother Fall Grandmother Diabetes mellitus Sister Gallstones Social History marital status: unknown household members: none lives independently: Yes occupational status: previously employed Smoking Status: Never smoker alcohol intake: former substance use type: does not use Meds Home Medications and Allergies Home Medications Medication Instructions Recorded Confirmed Type hydrocodone 5 mg-acetaminophen 325 1 tab PO Q8H PRN pain #14 tabs 10/29/23 06/16/24 Rx mg tablet diazepam 5 mg tablet 5 mg PO BEDTIME PRN RLS 12/31/23 06/16/24 History lidocaine-prilocaine 2.5 %-2.5 % topical DAILY 12/31/23 06/16/24 History topical cream pembrolizumab [Keytruda] IV Q3W 03/18/24 06/16/24 History peg 3350-electrolytes 236 240 ml PO Q10M #4,000 mL 07/09/24 Rx gram-22.74 gram-6.74 gram-5.86 gram solution (Golytely) Allergies Allergy/AdvReac Type Severity Reaction Status Date / Time Sulfa (Sulfonamide Allergy Intermediate Verified 06/16/24 14:40 Antibiotics) citric acid AdvReac Severe rash and Verified 06/16/24 14:40 canker sores prednisone AdvReac Verified 07/17/24 11:29 Exam Vital Signs (past 8 hours): - 07/17/24 11:29 Temperature 97.0 F L Pulse Rate 99 H Respiratory Rate 16 Blood Pressure 137/82 Pulse Oximetry 98 Oxygen Delivery Method Room Air Oxygen Delivery Method Room Air Const General: healthy appearing Resp Effort & Inspection: normal respiratory effort Assessment & Plan Assessment and plan (1) Colon cancer screening: Status: Acute Plan Colonoscopy Time-Based Coding :: [TOTAL MINUTES] spent with patient and on the chart (including review of chart, obtaining history, exam, reviewing outside data, placing orders, documenting exam and treatment plan, and counseling patient) on [DATE].
[2024-07-17 12:55] VITALS: BP 101/70; PULSE 84; RESP 15; TEMP 36.2; O2SAT 92
--- NOTE | 2024-07-17 12:56 | PM.OP.COLON ---
Operative Date/Time/Diagnoses Date of procedure: 07/17/24 Time of procedure: 12:56 Pre-op diagnosis: Colon cancer screening Post-op diagnosis: same Procedure & Clinicians Study performed: Colonoscopy Same procedure as scheduled: Yes Surgeon: Jasvir Tang Procedure Notes Procedure in detail: Surgeon: Jasvir Tang MD Anesthesia: Sabine Ennis CRNA Procedure: The patient was brought to the endoscopy suite, placed in left lateral decubitus position. The patient was connected to monitoring devices. A time-out was performed. Sedation was administered. Once the patient was adequately sedated, a digital rectal exam was performed and was normal. The scope was then inserted and advanced to the cecum where the appendiceal orifice was identified and photographed. The scope was then slowly withdrawn over greater than 6 minutes. The mucosa was thoroughly inspected. No abnormalities were identified. The scope was retroflexed in the rectum. No abnormalities were seen. The scope was straightened and removed. The patient was awakened and brought to recovery. Scope withdrawal time: 7 minutes Sedation time: 13 minutes EBL: 0 Findings: Normal colon Post-procedure Recommendations: Colonoscopy in 10 years Disposition: PACU
[2024-07-17 13:00] VITALS: BP 101/65; PULSE 79; RESP 13; O2SAT 92
[2024-07-17 13:06] VITALS: BP 104/66; PULSE 83; RESP 10; O2SAT 93
[2024-07-17 13:11] VITALS: BP 103/64; PULSE 86; RESP 11; TEMP 36.8; O2SAT 97
[2024-07-17 13:15] VITALS: BP 100/67; PULSE 83; RESP 16; TEMP 36.1; O2SAT 97
== END 2024-07-17 13:25 | disposition home or self-care (01) ==
PROVIDERS: PCP Family Medicine; Referring Provider Surgery; Visit Provider Surgery
PROC: 0DJD8ZZ Inspection of Lower Intestinal Tract, Via Natural or Artificial Opening Endoscopic (ICD-10-PCS; CPT 45378; principal; 2024-07-17 12:15)
DX: Z12.11 Encounter for screening for malignant neoplasm of colon (principal)
CPT/HCPCS: 45378; J2704

== ENCOUNTER → 2024-08-21 12:09 | Outpatient (CLI) | payer OTHER, SELFPAY ==
--- NOTE | 2024-08-21 | DI.MG.S_ITS ---
BILATERAL DIGITAL DIAGNOSTIC MAMMOGRAM 3D/2D: 08/21/2024 CLINICAL: Oncology follow up of right breast cancer. Due for bilateral. Comparison is made to exams dated: 10/15/2023 breast MRI - [facility], 04/10/2023 mammogram - [facility], 02/01/2023 mammogram - [facility], 12/02/2019 mammogram - Outside facility, 10/29/2023 localization, and 03/14/2023 mammogram - [facility]. The breasts are heterogeneously dense, which may obscure small masses (category c / 51-75% glandular tissue). There are benign post operative changes in the right breast and axilla. There also is a benign biopsy clip in the left breast. No significant masses, calcifications, or other findings are seen in either breast. IMPRESSION: BENIGN There is no mammographic evidence of malignancy. A 1 year screening mammogram is recommended. This exam was interpreted at Station ID: [id number]. NOTE: For mammograms, a report in lay terms will be sent to the patient. Approximately 15% of breast malignancies will not be visualized mammographically. In the management of a palpable breast mass, a negative mammogram must not discourage biopsy of a clinically suspicious lesion. Electronically Signed By: Sekou patel/cruz:08/21/2024 21:35:06 letter sent: Normal Exam ACR BI-RADS Category 2: Benign
== END ==
LOC: MAMMO 12:10
PROVIDERS: PCP Family Medicine; Referring Provider Internal Medicine Hematology & Oncology; Visit Provider Internal Medicine Hematology & Oncology
DX: C50.311 Malignant neoplasm of lower-inner quadrant of right female breast (principal); Z17.1 Estrogen receptor negative status [ER-]
CPT/HCPCS: 77066; G0279

== ENCOUNTER → 2025-02-22 14:56 | Outpatient (CLI) | payer OTHER, SELFPAY | PROVIDERS: PCP Family Medicine; Visit Provider Chiropractor | DX: R30.0 Dysuria (principal) | CPT/HCPCS: 87086 ==

== ENCOUNTER → 2025-02-25 11:00 | Outpatient (CLI) | payer OTHER, SELFPAY ==
[2025-02-25 12:07] LABS: Appearance Urine UA CLEAR; Bilirubin Urine UA NEGATIVE (NEGATIVE); Color Urine UA YELLOW; Glucose Urine UA NEGATIVE (Negative); Ketones Urine UA NEGATIVE (NEGATIVE); Leukocyte Esterase Urine UA NEGATIVE (NEGATIVE); Nitrite Urine UA NEGATIVE (Negative); Occult Blood Urine UA NEGATIVE (Negative); Protein Urine UA NEGATIVE (Negative); Urobilinogen Urine UA 0.2 E.U./dL (0.2)
[2025-02-25 12:09] LABS: pH Urine UA 5.5 (4.5-8.0)
[2025-02-25 12:12] LABS: Bacteria Urine None Seen; Culture Indicated Urine Cult Not Indicated; RBC Urine None Seen (0-5/HPF); Squamous Epithelial Cell Urine None Seen (0-5/HPF); Urine Volume 10mL (spun); WBC Urine None Seen (0-5/HPF)
== END ==
PROVIDERS: PCP Family Medicine; Referring Provider Family Medicine; Visit Provider Family Medicine
DX: N39.0 Urinary tract infection, site not specified (principal); R39.9 Unspecified symptoms and signs involving the genitourinary system
CPT/HCPCS: 81001